=== PATIENT | male | born 1950 | race Caucasian/White ===

== ENCOUNTER 2017-11-01 09:46 | Day surgery (SDC) | payer MEDICARE, OTHER, SELFPAY ==
--- NOTE | 2017-11-01 09:02 | PM.OP.ENDO ---
Operative Date/Time/Diagnoses Date of procedure: 11/01/17 Time of procedure: 09:02 Pre-op diagnosis: History of colon cancer. Resection about 1 year ago. Colonoscopy about 1 year ago. Post-op diagnosis: same (Irregularity of the cecum and at 80 cm. Polypoid lesion in the ascending colon.) Procedure & Clinicians Study performed: Colonoscopy with cold biopsy and hot snare polypectomy Same procedure as scheduled: Yes Indications: History of colon cancer Surgeon: Neo Canela Procedure Notes SCOAP/Timeout: Performed Procedure in detail: The patient is placed in left lateral decubitus position underwent IV sedation directed by the surgeon consisting of fentanyl and Versed. She was given Zofran because of a history of nausea with narcotics. Digital exam revealed decreased sphincter tone. The scope was inserted advanced through the rectum. I encountered an anastomosis at 25 cm . Going beyond I entered the remainder of the colon which appeared to be at least transverse and ascending colon. There were numerous diverticula noted from the anastomosis onward. The cecum was entered identified by the ileocecal valve and the appendiceal opening. There was a slight irregularity not far from the appendiceal stump opening and this was biopsied. The scope was gradually brought out. In the ascending colon there was a verrucous like lesion which I biopsied and removed. The scope was slowly brought back and at 80 cm there was a unusual area of the colon which was near circumferential. There were smooth raised areas in this and it almost looked like an anastomosis. It was it was an end-to-end anastomosis. I snared multiple areas of the raised lesions which seemed to be separate in some places and confluent in others. I cauterized some areas as well. It was unclear of I had removed the entire lesion due to the fact it was not really a distinct abnormality. The scope was gradually brought out. Scope was retroflexed in the rectum and the anus had a fairly normal appearance. The scope was removed the patient tolerated the procedure well. Scope withdrawal time: 15-1/2 minutes Sedation minutes: 30 Findings: diverticulosis, polyp and other findings (Additional lesions which were biopsied) Specimen(s): other (Biopsy polyps and snared lesions.) Complications: none Recommendations: Colonscopy in 1 year (Depending on pathology.) and Other recommendation (Follow-up by letter/call depending on pathology) Follow up: as needed Disposition: PACU
[2017-11-01 10:27] VITALS: BP 126/85; PULSE 54; RESP 16; TEMP 37.2; O2SAT 97
[2017-11-01] MEDS: SODIUM CHLORIDE 0.9% 1,000 ML 200 ML IV (10:38)
--- NOTE | 2017-11-01 11:03 | PM.HP.1 ---
History of Present Illness Date Patient Seen: 11/01/17 Time Patient Seen: 11:03 Chief complaint: colonoscopy [id number] Narrative: Patient is a gentleman here for screening colonoscopy. He had his last colonoscopy about 11 years ago. No history of polyps. No blood in his stool. No family history of colon cancer. Patient History Medical History History of supraventricular tachycardia (Resolved) Surgical History History of radiofrequency ablation procedure for cardiac arrhythmia (Resolved) Family & Social History Social History: household members spouse Meds Home Medications Medication Instructions Recorded Confirmed Type No Known Home Medications 11/01/17 11/01/17 History Allergies Allergy/AdvReac Type Severity Reaction Status Date / Time Sulfa (Sulfonamide Allergy Verified 11/01/17 10:12 Antibiotics) Review of Systems Review of Systems All systems reviewed & are unremarkable except as noted in HPI and below Exam Vital Signs (past 8 hours): - 11/01/17 10:27 Temperature 99.0 F Pulse Rate 54 L Respiratory Rate 16 Blood Pressure 126/85 H Pulse Oximetry 97 Oxygen Delivery Method Room Air Narrative Exam Narrative: Operative gentleman no apparent distress. Eyes nonicteric. Lungs clear to auscultation no rales rhonchi. Heart regular rate and rhythm without murmur gallop. Abdomen is scaphoid soft nontender without mass. Liver and spleen not enlarged. Alert and oriented x3. Assessment & Plan (1) Screening for colon cancer: Current visit: Yes Status: Acute Plan: Assessment/Plan Narrative: I discussed procedure with the patient. I have discussed the procedure and the rationale with the patient including risks of bleeding, perforation which would necessitate a major operation, failure to find remove all lesions and the potential to tattoo. They appeared to understand and wished to proceed.
--- NOTE | 2017-11-01 11:11 | PM.PREOP ---
Pre-operative Note Interval Note Pre-op Check: Yes History & Physical exam performed today by Physician Changes: No ASA Class (for procedural sedation): I
[2017-11-01] MEDS: MIDAZOLAM 5 MG/5 ML VIAL IV (11:12)
[2017-11-01] MEDS: fentaNYL 250 MCG/5 ML INJ IV (11:14)
--- NOTE | 2017-11-01 11:41 | PM.OP.ENDO ---
Operative Date/Time/Diagnoses Date of procedure: 11/01/17 Time of procedure: 11:42 Pre-op diagnosis: Screening examination. Last exam 11 years ago. Post-op diagnosis: same (Diverticulosis of the sigmoid colon) Procedure & Clinicians Study performed: Colonoscopy Same procedure as scheduled: Yes Indications: Screening Surgeon: Neo Canela Procedure Notes SCOAP/Timeout: Performed Procedure in detail: The patient was placed in the left lateral decubitus position and underwent IV sedation directed by the surgeon consisting of fentanyl and Versed. Digital exam was unremarkable. I could only feel portion of his prostate but that portion felt normal. The scope was inserted and advanced through the rectum into the sigmoid, descending, transverse, and ascending colon. Patient was noted to have diverticulosis in his sigmoid colon.. The cecum was reached identified by the ileocecal valve and the appendiceal opening. The ileocecal valve was successfully cannulated. The terminal ileum was normal in appearance. The scope was gradually brought out. No Polyps were found. The scope ultimately was retroflexed in the rectum. The appearance was[normal]. The scope was removed and the patient tolerated the procedure well Scope withdrawal time: 8 min Sedation minutes: 27 Findings: diverticulosis (Sigmoid) Specimen(s): none sent Complications: none Recommendations: Colonscopy in 10 years Follow up: as needed Disposition: PACU
[2017-11-01 11:52] VITALS: BP 123/84; PULSE 54; RESP 16; TEMP 36.4; O2SAT 94
== END 2017-11-01 12:05 | disposition home or self-care (01) ==
PROVIDERS: PCP Internal Medicine; Visit Provider Specialist
PROC: 0DJD8ZZ Inspection of Lower Intestinal Tract, Via Natural or Artificial Opening Endoscopic (ICD-10-PCS; CPT 45378; principal; 2017-11-01 10:45)
DX: Z12.11 Encounter for screening for malignant neoplasm of colon (principal); K57.30 Diverticulosis of large intestine without perforation or abscess without bleeding
CPT/HCPCS: G0121; 99152; 99153; J2250; J3010

== ENCOUNTER → 2018-07-28 09:54 | Outpatient (CLI) | payer MEDICARE, SELFPAY ==
[2018-07-28 11:26] LABS: Alanine Aminotransferase 35 IU/L (21-72); Albumin 4.4 g/dL (3.5-5.0); Albumin Globulin Ratio 1.6 (1.0-2.8); Alkaline Phosphatase 60 U/L (38-126); Aspartate Aminotransferase 37 IU/L (17-59); BUN Creatinine Ratio 14.5 (6-22); Bilirubin Total 0.7 mg/dL (0.2-1.3); Blood Urea Nitrogen 16 mg/dL (9-20); Calcium 9.3 mg/dL (8.4-10.2); Carbon Dioxide 28 mmol/L (22-32); Chloride 102 mmol/L (98-107); Estimated Glomerular Filt Rate > 60.0 mL/min (>60); Globulin 2.8 g/dL (1.7-4.1); Glucose 65 mg/dL (80-110); HEMOLYSIS < 15 (0-50); Potassium 4.4 mmol/L (3.4-5.1); Sodium 140 mmol/L (137-145); Total Protein 7.2 g/dL (6.3-8.2)
[2018-07-28 11:55] LABS: Prostate Specific Antigen Scrn 2.14 ng/mL (0.1-4.0)
== END ==
PROVIDERS: PCP Internal Medicine; Visit Provider Internal Medicine
DX: N41.0 Acute prostatitis (principal); E78.00 Pure hypercholesterolemia, unspecified; I10 Essential (primary) hypertension
CPT/HCPCS: 36415; 80053; G0103

== ENCOUNTER → 2019-05-07 15:39 | Outpatient (ROUT) | payer MEDICARE, SELFPAY ==
[2019-05-07 16:45] LABS: Basophils Absolute Auto 0 /uL (0-100); Basophils Percent Auto 0.4 % (0-2); Eosinophils Absolute Auto 100 /uL (0-450); Eosinophils Percent Auto 1.2 % (2-4); Hematocrit 47.3 % (41-53); Hemoglobin 16.1 g/dL (13.5-17.5); Lymphocytes Absolute Auto 600 /uL (1100-4500); Lymphocytes Percent Auto 5.9 % (25-40); Mean Corpuscular HGB Conc 34.1 % (30-36); Mean Corpuscular Hemoglobin 30.8 PG (26-34); Mean Corpuscular Volume 90.5 fL (80-100); Monocytes Absolute Auto 800 /uL (0-900); Monocytes Percent Auto 8.1 % (3-14); Neutrophils Absolute Auto 8600 /uL (1500-7000); Neutrophils Percent Auto 84.4 % (50-75); Red Blood Cell Count 5.22 X10^6/uL (4.5-5.9); Red Cell Distribution Width 12.9 % (11.6-14.8); White Blood Cell Count 10.1 X10^3/uL (4.5-11.0)
[2019-05-07 16:46] LABS: Add Manual Diff / Slide Review SLIDE REVIEW; Platelet Estimate Adequate on smear; RBC Morphology Normal Morphology
[2019-05-07 16:47] LABS: Platelet Morphology Comment NOTE:
[2019-05-07 16:48] LABS: C-Reactive Protein Quant 5.1 mg/dL (<1.0); Erythrocyte Sedimentation Rate 31 MM/HR (0-15)
== END ==
PROVIDERS: PCP Internal Medicine; Visit Provider Student in an Organized Health Care Education/Training Program
DX: M25.511 Pain in right shoulder (principal); M25.512 Pain in left shoulder
CPT/HCPCS: 85025; 85651; 86140

== ENCOUNTER → 2019-08-02 16:07 | Outpatient (CLI) | payer MEDICARE, SELFPAY ==
[2019-08-04 16:07] LABS: SARS CoV19 IgG Negative (Negative)
== END ==
PROVIDERS: PCP Internal Medicine; Referring Provider Internal Medicine; Visit Provider Internal Medicine
DX: Z71.1 Person with feared health complaint in whom no diagnosis is made (principal)
CPT/HCPCS: 36415; 86769

== ENCOUNTER → 2019-10-16 07:09 | Outpatient (CLI) | payer MEDICARE, SELFPAY ==
[2019-10-16 08:47] LABS: Erythrocyte Sedimentation Rate 1 MM/HR (0-15)
[2019-10-16 08:52] LABS: Cholesterol 197 mg/dL (140-199); HDL Cholesterol 55 mg/dL (40-60); LDL Cholesterol Calculated 120 mg/dL (<100); Triglycerides 108 mg/dL (35-150)
[2019-10-16 09:14] LABS: Prostate Specific Antigen Scrn 1.07 ng/mL (0.1-4.0)
== END ==
PROVIDERS: PCP Internal Medicine; Referring Provider Internal Medicine; Visit Provider Internal Medicine
DX: M35.3 Polymyalgia rheumatica (principal); E78.00 Pure hypercholesterolemia, unspecified; Z12.5 Encounter for screening for malignant neoplasm of prostate
CPT/HCPCS: 36415; 80061; 85651; G0103

== ENCOUNTER → 2019-11-26 13:59 | Outpatient (CLI) | payer MEDICARE, SELFPAY ==
[2019-11-26 15:36] LABS: Erythrocyte Sedimentation Rate 3 MM/HR (0-15)
[2019-11-26 15:44] LABS: Cholesterol 189 mg/dL (140-199); HDL Cholesterol 52 mg/dL (40-60); LDL Cholesterol Calculated 113 mg/dL (<100); Triglycerides 121 mg/dL (35-150)
[2019-11-26 16:15] LABS: Prostate Specific Antigen Scrn 1.01 ng/mL (0.1-4.0)
== END ==
PROVIDERS: PCP Internal Medicine; Referring Provider Internal Medicine; Visit Provider Internal Medicine
DX: M35.3 Polymyalgia rheumatica (principal); E78.00 Pure hypercholesterolemia, unspecified; Z12.5 Encounter for screening for malignant neoplasm of prostate
CPT/HCPCS: 36415; 80061; 85651; G0103

== ENCOUNTER → 2020-01-30 13:18 | Outpatient (CLI) | payer MEDICARE, SELFPAY ==
[2020-01-30 14:39] LABS: Erythrocyte Sedimentation Rate 5 MM/HR (0-15)
== END ==
PROVIDERS: PCP Internal Medicine; Referring Provider Internal Medicine; Visit Provider Internal Medicine
DX: M35.3 Polymyalgia rheumatica (principal)
CPT/HCPCS: 36415; 85651

== ENCOUNTER → 2020-04-22 15:43 | Outpatient (CLI) | payer MEDICARE, SELFPAY ==
[2020-04-22] MEDS: COVID-19 VACC #1, MRNA(MOD) 100 MCG/0.5 ML VIAL IM (15:47)
== END ==
PROVIDERS: PCP Internal Medicine; Visit Provider Internal Medicine
DX: Z23 Encounter for immunization (principal)
CPT/HCPCS: 0011A; 91301

== ENCOUNTER → 2020-05-20 10:35 | Outpatient (CLI) | payer MEDICARE, SELFPAY ==
[2020-05-20] MEDS: COVID-19 VACC #2, MRNA(MOD) 100 MCG/0.5 ML VIAL IM (10:45)
== END ==
PROVIDERS: PCP Internal Medicine; Visit Provider Internal Medicine
DX: Z23 Encounter for immunization (principal)
CPT/HCPCS: 0012A; 91301

== ENCOUNTER → 2020-07-17 13:49 | Outpatient (CLI) | payer OTHER, SELFPAY ==
[2020-07-17 14:14] LABS: Basophils Absolute Auto 0 /uL (0-100); Basophils Percent Auto 0.5 % (0-2); Eosinophils Absolute Auto 100 /uL (0-450); Eosinophils Percent Auto 2.6 % (2-4); Hematocrit 47.3 % (41-53); Hemoglobin 15.8 g/dL (13.5-17.5); Lymphocytes Absolute Auto 800 /uL (1100-4500); Lymphocytes Percent Auto 15.1 % (25-40); Mean Corpuscular HGB Conc 33.5 % (30-36); Mean Corpuscular Hemoglobin 29.4 PG (26-34); Monocytes Absolute Auto 400 /uL (0-900); Monocytes Percent Auto 7.1 % (3-14); Neutrophils Absolute Auto 4100 /uL (1500-7000); Neutrophils Percent Auto 74.7 % (50-75); Red Blood Cell Count 5.37 X10^6/uL (4.5-5.9); Red Cell Distribution Width 14.4 % (11.6-14.8); White Blood Cell Count 5.5 X10^3/uL (4.5-11.0)
[2020-07-17 14:47] LABS: Add Manual Diff / Slide Review SLIDE REVIEW
[2020-07-17 14:50] LABS: Alanine Aminotransferase 24 IU/L (<50); Albumin 4.2 g/dL (3.5-5.0); Albumin Globulin Ratio 1.6 (1.0-2.8); Alkaline Phosphatase 64 U/L (38-126); Aspartate Aminotransferase 35 IU/L (17-59); BUN Creatinine Ratio 20.8 (6-22); Bilirubin Total 0.4 mg/dL (0.2-1.3); Blood Urea Nitrogen 20 mg/dL (9-20); Calcium 9.6 mg/dL (8.4-10.2); Carbon Dioxide 27 mmol/L (22-32); Chloride 104 mmol/L (98-107); Estimated Glomerular Filt Rate > 60.0 mL/min (>60); Globulin 2.7 g/dL (1.7-4.1); Glucose 111 mg/dL (80-110); HEMOLYSIS < 15 (0-50); Potassium 4.3 mmol/L (3.4-5.1); Sodium 138 mmol/L (137-145); Total Protein 6.9 g/dL (6.3-8.2)
[2020-07-17 15:21] LABS: Prostate Specific Antigen Scrn 1.09 ng/mL (0.1-4.0)
[2020-07-17 15:39] LABS: Hypochromasia 1+
[2020-07-17 15:40] LABS: Platelet Count 132 X10^3/uL (150-400)
== END ==
PROVIDERS: PCP Internal Medicine; Referring Provider Internal Medicine; Visit Provider Internal Medicine
DX: M15.0 Primary generalized (osteo)arthritis (principal); E78.00 Pure hypercholesterolemia, unspecified; Z12.5 Encounter for screening for malignant neoplasm of prostate; M35.3 Polymyalgia rheumatica; D72.810 Lymphocytopenia
CPT/HCPCS: 36415; 80053; 85025; G0103

== ENCOUNTER → 2020-09-03 14:40 | Outpatient (CLI) | payer OTHER, SELFPAY ==
[2020-09-03 18:00] LABS: Add Manual Diff / Slide Review NO; Basophils Absolute Auto 100 /uL (0-100); Basophils Percent Auto 0.9 % (0-2); Eosinophils Absolute Auto 400 /uL (0-450); Eosinophils Percent Auto 6.7 % (2-4); Lymphocytes Absolute Auto 1000 /uL (1100-4500); Lymphocytes Percent Auto 15.6 % (25-40); Mean Corpuscular HGB Conc 33.3 % (30-36); Mean Corpuscular Hemoglobin 29.4 PG (26-34); Mean Corpuscular Volume 88.3 fL (80-100); Monocytes Absolute Auto 500 /uL (0-900); Monocytes Percent Auto 8.4 % (3-14); Neutrophils Absolute Auto 4200 /uL (1500-7000); Neutrophils Percent Auto 68.4 % (50-75); Red Blood Cell Count 4.75 X10^6/uL (4.5-5.9); Red Cell Distribution Width 14.1 % (11.6-14.8); White Blood Cell Count 6.2 X10^3/uL (4.5-11.0)
== END ==
PROVIDERS: PCP Internal Medicine; Referring Provider Internal Medicine; Visit Provider Internal Medicine
DX: D72.810 Lymphocytopenia (principal)
CPT/HCPCS: 36415; 85025

== ENCOUNTER → 2022-04-22 07:36 | Outpatient (CLI) | payer OTHER, SELFPAY ==
--- NOTE | 2022-04-22 07:38 | DI.US.S_ITS ---
PROCEDURE: US ABDOMEN LIMITED INDICATIONS: UMBILICAL AREA LUMP TECHNIQUE: Real-time focused scanning was performed of the abdomen, with image documentation. COMPARISON: None. FINDINGS: Possible/equivocal tiny fat containing periumbilical hernia at the right periumbilical region, in the patient indicated area of concern. Possible Neck of the potential hernia measures approximately 4 millimeters. Incidental note is made of an ovoid echogenic structure within the superficial soft tissues right superior of the umbilicus, 2.0 x 0.9 x 0.8 centimeters in size, 2 millimeters deep to the skin surface, no internal vascularity visualized on Doppler images. IMPRESSION: 1. Possible/equivocal tiny fat containing periumbilical hernia in the right periumbilical region at the patient indicated area of concern. CT of the abdomen and pelvis may be helpful for further evaluation if indicated. 2. A 2.0 cm mass is present in the soft tissues of the right supraumbilical abdominal wall. The sonographic appearance is suggestive of a lipoma. Clinical follow-up is recommended and if the finding increases in size or the patient develops symptoms such as pain, a repeat examination or MRI could be obtained. Dictated by: Galen Trivedi M.D. on 04/22/2022 at 12:15 Approved by: Galen Trivedi M.D. on 04/22/2022 at 12:21
== END ==
PROVIDERS: PCP Internal Medicine; Referring Provider Internal Medicine; Visit Provider Internal Medicine
DX: R22.2 Localized swelling, mass and lump, trunk (principal)
CPT/HCPCS: 76705